=== PATIENT | male | born 1975 | race Two or more races ===

== ENCOUNTER 2018-09-28 11:04 | Emergency (ER) | payer MEDICAID ==
[~2018-09-28] VITALS: Ht 170.2 cm; Wt 61.0 kg
[2018-09-28 11:10] VITALS: BP 113/71
== END 2018-09-28 12:46 | disposition home or self-care (01) ==
LOC: ED 12:40
DX: S52.502A Unspecified fracture of the lower end of left radius, initial encounter for closed fracture (principal); W01.0XXA Fall on same level from slipping, tripping and stumbling without subsequent striking against object, initial encounter; Y93.89 Activity, other specified; Y92.89 Other specified places as the place of occurrence of the external cause; Y99.8 Other external cause status
CPT/HCPCS: 29125; 99283